=== PATIENT | female | born 1955 | race Caucasian/White ===

== ENCOUNTER 2018-06-28 13:46 | Outpatient (CLI) | payer OTHER | END 2018-06-28 13:47 | disposition home or self-care (01) | LOC: BICMAMMO 13:46 | PROVIDERS: ATTEND Internal Medicine Hematology & Oncology | DX: C50.919 Malignant neoplasm of unspecified site of unspecified female breast (principal); M89.9 Disorder of bone, unspecified; Z80.3 Family history of malignant neoplasm of breast; Z85.3 Personal history of malignant neoplasm of breast | CPT/HCPCS: 77066; 77080; G0279 ==

== ENCOUNTER → 2019-02-22 | Day surgery (SDC) | payer OTHER ==
[2019-02-21 14:43] VITALS: BMI 34.7
[~2019-02-22] MED LIST: Dronedarone HCl 400 MG TAB ONE; Lidocaine 1% PF 5 ML VIAL ONE; PROPOFOL 200 MG/20 ML VIAL ONE
--- NOTE | 2019-02-22 11:26 | DIS ---
DATE OF ADMISSION: 02/22/2019 DATE OF DISCHARGE: 02/22/2019 DATE OF PROCEDURE: 02/22/2019. She will be discharged on the same day. This is an outpatient procedure. She was seen in the outpatient facility to undergo a transesophageal echocardiogram to rule out evidence of intracardiac thrombi, masses, vegetation, also ruled out evidence of left atrial appendage thrombus in anticipation of undergoing an electrocardioversion of atrial fibrillation back to sinus rhythm. ADMISSION DIAGNOSES: Atrial fibrillation, hypertension, depression, hypothyroidism, dyspnea, and varicose veins. DISCHARGE DIAGNOSES: Atrial fibrillation, hypertension, depression, hypothyroidism, dyspnea, and varicose veins. She has been subsequently successfully converted from her atrial fibrillation back to sinus rhythm. PROCEDURE PERFORMED: Procedure in hospital included a transesophageal echocardiogram as well as electrocardioversion of atrial fibrillation. DISCHARGE MEDICATIONS: 1. Eliquis 5 mg b.i.d. 2. Coreg 3.125 mg b.i.d. 3. Anastrozole 1 mg daily. 4. Levothyroxine 125 mcg daily. 5. Vitamin D3. 6. Lexapro, she takes 10 mg a day. 7. Potassium 10 mEq a day. 8. Furosemide 20 mg once a day. She has actually been holding this unless her legs have swollen. 9. Femhrt 1 mg/5 mcg tablets every day. 10. I will also start her on Multaq 400 mg b.i.d. to help maintain her sinus rhythm. FOLLOWUP: She will follow me in 2 to 4 weeks in the office. HOSPITAL COURSE: This is a very pleasant 63-year-old female, who was found to have atrial fibrillation with rapid ventricular response at times. She is advised to undergo a transesophageal echocardiogram and then cardioversion possibly of her atrial fibrillation. She had been seen in the office previously. The diagnosis of atrial fibrillation was at least since December 23. She continued to have atrial fibrillation. She was advised to attempt an electrocardioversion after undergoing a transesophageal echocardiogram to rule out evidence of left atrial appendage thrombus. This was performed today without difficulties or complication. She was not found to have any intracardiac thrombi or masses. Left atrium was dilated to 5-5.2 cm in diameter, which may make it somewhat more difficult to maintain sinus rhythm. If she continues to have episodes of atrial fibrillation that are symptomatic, then she will need to undergo electrophysiological evaluation, possible atrial vein isolation for ablation of the atrial fibrillation. At this time, she did very well after cardioversion. At one attempt to 200 joules, she was successfully converted back to sinus rhythm without difficulties or complications. If she remained stable with blood pressure, heart rate and O2 saturations, she will be discharged home in the next 2 hours. I will see her back in the office in 2 to 4 weeks. Job ID: [id number]
--- NOTE | 2019-02-22 19:15 | OP ---
DATE OF PROCEDURE: 02/22/19 ELECTROCARDIOVERSION INDICATION FOR PROCEDURE: 63-year-old female with atrial fibrillation. She has been on oral anticoagulation. She also has a his tory of hypertension and shortness of breath associated with the rapid heart rate when she has the at rial fibrillation, worsening. She also has a history of depression, thyroid disease, varicose veins. She was advised to undergo a transesophageal echocardiogram after she has been on oral anticoagulatio n for at least two months to determine whether or not she had any left atrial appendage thrombus and if not we would then proceed with electrocardioversion attempt of her atrial fibrillation back to sin us rhythm. After the patient had undergone the transesophageal echocardiogram, then using one attempt at 200 sara les, she was successfully converted back to normal sinus rhythm with a heart rate in the 60s. There w ere no complications or difficulties encountered. This was a successful cardioversion of atrial fibrillation back to sinus rhythm. She will be started on Multaq to hopefully maintain her sinus rhythm.
--- NOTE | 2019-02-22 19:15 | ECHO ---
DATE OF PROCEDURE: 02/22/19 INDICATION: 63-year-old female with atrial fibrillation. She has been on oral anticoagulation. She also has a his tory of hypertension and shortness of breath associated with the rapid heart rate when she has the at rial fibrillation, worsening. She also has a history of depression, thyroid disease, varicose veins. She was advised to undergo a transesophageal echocardiogram after she has been on oral anticoagulatio n for at least two months to determine whether or not she had any left atrial appendage thrombus and if not we would then proceed with electrocardioversion attempt of her atrial fibrillation back to sin us rhythm. She was taken to the [facility] today where she underwent the procedure. She was given short ac ting propofol for the procedure. The transesophageal probe was easily passed down the distal esophagu s. The impressions on the echocardiogram are as follows 1. Normal left ventricular systolic function. 2. Left atrial dilatation of at least 5.2 cm in diameter. 3. Smoke in the left atrium. 4. No evidence of left atrial or left atrial appendage thrombus. There was good flow into the left a trial appendage. 5. Mild tricuspid valve regurgitation. 6. Mild to moderate mitral valve regurgitation. 7. No evidence of aortic valve disease. There is normal valve. No evidence of stenosis or regurgitat ion. The patient tolerated the transesophageal evaluation without any difficulties or complications.
== END ==
LOC: CCL 08:17
PROVIDERS: ATTEND Internal Medicine Cardiovascular Disease
PROC: 5A2204Z Restoration of Cardiac Rhythm, Single (ICD-10-PCS; principal; 2019-02-22)
PROC: B24BZZ4 Ultrasonography of Heart with Aorta, Transesophageal (ICD-10-PCS; principal; 2019-02-22)
DX: I48.0 Paroxysmal atrial fibrillation (principal); I10 Essential (primary) hypertension; F32.9 Major depressive disorder, single episode, unspecified; E03.9 Hypothyroidism, unspecified; I87.2 Venous insufficiency (chronic) (peripheral); I08.1 Rheumatic disorders of both mitral and tricuspid valves; Z79.01 Long term (current) use of anticoagulants; Z79.811 Long term (current) use of aromatase inhibitors; Z79.899 Other long term (current) drug therapy; Z88.2 Allergy status to sulfonamides; Z98.84 Bariatric surgery status
CPT/HCPCS: 92960; 93312; J2001; J2704

== ENCOUNTER 2019-07-14 08:15 | Outpatient (CLI) | payer OTHER ==
--- NOTE | 2019-07-14 09:01 | MMO ---
Bilateral MAMMO Bilat Diag DDI+KAT. CLINICAL HISTORY: Patient is 63 years old and is seen for diagnostic exam. The patient has a history of left Cyst Aspiration in 2002. VIEWS: The views performed were: . FILMS COMPARED: The present examination has been compared to prior imaging studies performed at [facility] on 07/16/2007, 08/08/2008, 10/03/2009 and 06/28/2018. MAMMOGRAM FINDINGS: There are scattered fibroglandular densities. Finding 1: There are stable post operative changes seen in the left breast. Finding 2: There are stable benign appearing calcifications seen in both breasts. There are no suspicious masses, suspicious calcifications, or new areas of architectural distortion. IMPRESSION: THERE IS NO MAMMOGRAPHIC EVIDENCE OF MALIGNANCY. A ROUTINE FOLLOW-UP MAMMOGRAM IN 1 YEAR IS RECOMMENDED. THE RESULTS OF THIS EXAM WERE SENT TO THE PATIENT. ACR BI-RADS Category 2 - Benign finding MAMMOGRAPHY NOTE: 1. A negative mammogram report should not delay a biopsy if a dominant of clinically suspicious mass is present. 2. Approximately 10% to 15% of breast cancers are not detected by mammography. 3. Adenosis and dense breasts may obscure an underlying neoplasm. Reported by: WOLF BENAVIDES MD Electonically Signed: [id number]
--- NOTE | 2019-07-14 15:16 | BD ---
DEXA BONE DENSITOMETRY: (Dual energy X-ray Absorptiometry) DATE: 07/14/2019. HISTORY: A 63-year-old white female for followup, age-related, postmenopausal osteoporosis screening examinati on. Height: 71 inches. Weight: 152 pounds. Age of menopause: 46 years. COMPARISON: 01/21/2016. FINDINGS: The bone mineral density (BMD) is given in grams per square centimeter (g/cm2): LUMBAR SPINE: BMD(g/cm2) T-score Z-score L1: 1.150 1.5 2.8 L2: 1.216 1.7 3.2 L3: 1.217 1.2 2.8 L4: 1.325 2.4 4.0 Total: 1.23 1.6 3.1 Change in BMD compared to previous DEXA: -6.0% HIP: Femoral neck: 0.794 -0.5 0.9 Total: 1.017 0.6 1.6 Change in BMD compared to previous DEXA: -1.6% IMPRESSION: 1) The mean bone mineral density of the lumbar spine is normal. Fracture risk is not increased. 2) The bone mineral density of the femoral neck is normal. Fracture risk is not increased. JN Zora POS: [facility]
== END 2019-07-14 08:16 | disposition home or self-care (01) ==
LOC: BICMAMMO 08:15
PROVIDERS: ATTEND Internal Medicine Hematology & Oncology
DX: C50.112 Malignant neoplasm of central portion of left female breast (principal); T38.6X5A Adverse effect of antigonadotrophins, antiestrogens, antiandrogens, not elsewhere classified, initial encounter
CPT/HCPCS: 77066; 77080; G0279

== ENCOUNTER 2019-08-15 09:45 | Emergency (ER) | payer OTHER ==
[2019-08-15 10:51] LABS: #Basophils 0.1 thou/uL (0.0-0.2); #Eosinphils 0.3 thou/uL (0.0-0.7); #Lymphocytes 1.4 thou/uL (1.20-3.40); #Neutrophils 4.3 thou/uL (1.40-6.50); %Eosinophils 4.5 % (0.0-10.0); %Lymphocytes 19.8 % (21.0-51.0); %Monocytes 13.2 % (0.0-10.0); %Neutrophils 60.5 % (42.0-75.0); Hemoglobin 10.3 g/dL (12.0-16.0); Mean Corpuscular HGB CONC 33.3 g/dL (32.0-36.0); Mean Corpuscular Hemoglobin 28.2 pg (27.0-31.0); Mean Corpuscular Volume 84.7 fL (78.0-98.0); Mean Platelet Volume 8.8 fL (7.4-10.4); Platelet Count 224 thou/uL (130-400); RBC Distribution Width 12.8 % (11.5-14.5); Red Blood Cell (RBC) Count 3.64 mill/uL (4.20-5.40); White Blood Cell (WBC) Count 7.2 thou/uL (4.8-10.8)
[2019-08-15 10:56] LABS: INR-International Normal Ratio 1.8; Prothrombin Time 20.9 SEC (12.0-14.7)
[2019-08-15 10:57] LABS: PTT 42.2 SEC (22.9-36.1)
[2019-08-15 11:03] LABS: ALT (SGPT) 14 U/L (8-55); AST (SGOT) 14 U/L (5-34); Albumin 3.6 g/dL (3.4-4.8); Alkaline Phosphatase 76 U/L (40-150); Anion Gap 14 mmol/L (10-20); BUN (Urea Nitrogen) 31 mg/dL (9.8-20.1); Bilirubin, Total 0.6 mg/dL (0.2-1.2); Calc. Creatinine Clearance 0 mL/min (70-130); Calcium 8.4 mg/dL (7.8-10.44); Carbon Dioxide 24 mmol/L (23-31); Chloride 107 mmol/L (98-107); Estimated GFR-MDRD 73; Globulin 2.9 g/dL (2.4-3.5); Glucose 86 mg/dL (80-115); Potassium 3.6 mmol/L (3.5-5.1); Protein, Total 6.5 g/dL (6.0-8.3); Sodium 141 mmol/L (136-145)
--- NOTE | 2019-08-15 11:09 | RAD ---
EXAM: 4 views of the right knee HISTORY: Knee pain after injury COMPARISON: None FINDINGS: No knee effusion is seen. There is no evidence of acute fracture or dislocation. Mild to mo derate tricompartmental degenerative changes are seen. No soft tissue swelling is present. IMPRESSION: No evidence of acute osseous abnormality.
--- NOTE | 2019-08-15 11:23 | ULT ---
EXAM: Right lower extremity venous ultrasound HISTORY: Right lower extremity pain and edema after injury COMPARISON: None TECHNIQUE: Multiplanar grayscale and color Doppler images were obtained in a right lower extremity ve nous ultrasound. Spectral analysis of the Doppler waveforms were performed. FINDINGS: The common femoral vein, profunda femoral vein, superficial femoral vein, and popliteal vei n are normal in appearance without visible thrombus. These vessels demonstrate normal compression, flow, and augmentation. The posterior tibial vein and greater saphenous vein are patent without evidence of thrombus. IMPRESSION: No evidence of DVT.
[2019-08-15] MEDS ORDERED: Cephalexin 250 MG CAP ONE (11:54)
== END 2019-08-15 11:59 | disposition home or self-care (01) ==
LOC: SCSER 09:45
DX: S80.11XA Contusion of right lower leg, initial encounter (principal); D64.9 Anemia, unspecified; I48.91 Unspecified atrial fibrillation; E03.9 Hypothyroidism, unspecified; I10 Essential (primary) hypertension; F32.9 Major depressive disorder, single episode, unspecified; Z79.899 Other long term (current) drug therapy; W01.0XXA Fall on same level from slipping, tripping and stumbling without subsequent striking against object, initial encounter
CPT/HCPCS: 80053; 85025; 85610; 85730

== ENCOUNTER 2020-08-10 07:40 | Outpatient (CLI) | payer OTHER ==
--- NOTE | 2020-08-10 09:10 | MRI ---
EXAM: MRI of the breasts without and with contrast HISTORY: Left breast cancer COMPARISON: Mammogram and ultrasound 07/16/2020 TECHNIQUE: Multiplanar multisequence MR images were obtained of the breasts without and with IV contr ast. 3-D MIP reformats and contrast enhancement curves were generated on a [employer] workstation. FINDINGS: Scattered fibroglandular breast tissue is seen. Minimal background parenchymal enhancement is seen. There is enhancing spiculated mass measuring 1.3 cm in size at the 12:00 position of the left breast. There is edema in the left breast and thickening of the skin of the left breast and the left breast is larger than the right. No axillary adenopathy is seen. There is a minimally enlarged right axillary lymph node which still d emonstrates a fatty hilum and is likely normal. No internal mammary lymph nodes are identified. The visualized liver is unremarkable. The visualized bones are unremarkable. IMPRESSION: Isolated left breast mass without evidence of multicentric or contralateral disease. There is edema o f the skin of the left breast and enlargement of the left breast compared to the right. BI-RADS Category 6-known malignancy. Appropriate action should be taken.
== END 2020-08-10 07:41 | disposition home or self-care (01) ==
LOC: BICMRI 07:40
PROVIDERS: ATTEND Internal Medicine Hematology & Oncology
DX: C50.912 Malignant neoplasm of unspecified site of left female breast (principal); N63.22 Unspecified lump in the left breast, upper inner quadrant; R60.0 Localized edema
CPT/HCPCS: 82565; A9577; C8908

== ENCOUNTER 2020-08-22 15:53 | Outpatient (CLI) | payer OTHER ==
--- NOTE | 2020-08-22 19:33 | ULT ---
{\rtf1\zicifekr5923\ansi\qnirosb9070\uc1\adeff5\deff0\\stshfloch0\stshfhich0\stshfbi0\defla hd0788\vpjatdwlx7597\jhmznmwgb3774\themelangfe0\themelangcs0{\fonttbl{\f0\fbidi \froman\fcharset0\fpr q2{\*\panose [id number]}[employer]{\*\falt Device Font 10cpi};}{\f1\fbidi \fswiss\fcha rset0\fprq2{\*\panose [id number]}[place];}{\f5\fbidi \fmodern\fcharset0\fprq1{\*\panose 57653 [id number]}Publishing Editor{\*\falt Publishing Editor New};}{\f34\fbidi \froman\fcharset0\fprq2{\*\panose [id number]}[employer]ige Math;}{\f37\fbidi \fswiss\fcharset0\fprq2{\*\panose [id number]}[employer]; }{\flomajor\d48890\fbidi \froman\fcharset0\fprq2{\*\panose 30691975492589137351}[employer]{\*\fa lt Device Font 10cpi};}{\fdbmajor\o13799\fbidi \froman\fcharset0\fprq2{\*\panose [id number] }[employer]{\*\falt Device Font 10cpi};}{\fhimajor\c54659\fbidi \fswiss\fcharset0\fprq2{\*\alisha e [id number]}[employer] Light;}{\fbimajor\t33791\fbidi \froman\fcharset0\fprq2{\*\panose 63797 046280882175824}[employer]{\*\falt Device Font 10cpi};}{\flominor\l81037\fbidi \froman\fcharset0 \fprq2{\*\panose 32201871760198451765}[employer]{\*\falt Device Font 10cpi};}{\fdbminor\j69731\f bidi \froman\fcharset0\fprq2{\*\panose 21236973492198817470}[employer]{\*\falt Device Font 10cpi };}{\fhiminor\m50098\fbidi \fswiss\fcharset0\fprq2{\*\panose [id number]}[employer];}{\fbiminor \h01257\fbidi \froman\fcharset0\fprq2{\*\panose 45651609613029962309}[employer]{\*\falt Device F ont 10cpi};}{\f235\fbidi \froman\fgxcybub008\fprq2 [employer] CE{\*\falt Device Font 10cpi};}{\f 236\fbidi \froman\xgqnsuza088\fprq2 [employer] Berenice{\*\falt Device Font 10cpi};}{\f238\fbidi \fro man\dwohdxxs684\fprq2 [employer] Guinean{\*\falt Device Font 10cpi};}{\f239\fbidi \froman\fcharset 162\fprq2 [employer] Tur{\*\falt Device Font 10cpi};}{\f240\fbidi \froman\pevurwsx341\fprq2 Time s [employer] Buddy (Lithuanian){\*\falt Device Font 10cpi};}{\f241\fbidi \froman\acqgguls059\fprq2 Times [employer] Rom an (Japanese){\*\falt Device Font 10cpi};}{\f242\fbidi \froman\xtpaonkk517\fprq2 [employer] [place] {\*\falt Device Font 10cpi};}{\f243\fbidi \froman\fyqgkysj614\fprq2 [employer] ([place]){\*\f alt Device Font 10cpi};}{\f245\fbidi \fswiss\fwxteqhw732\fprq2 [place] CE;}{\f246\fbidi \fswiss\fcharse t204\fprq2 [place] Berenice;}{\f248\fbidi \fswiss\ckwlkfyn481\fprq2 [place] Guinean;}{\f249\fbidi \fswiss\fchars et162\fprq2 [place] Tur;}{\f250\fbidi \fswiss\kfbuqiwe082\fprq2 [place] ([place]uanian);}{\f251\fbidi \fswiss\fc wzttge772\fprq2 [place] ([place]);}{\f252\fbidi \fswiss\svojwxtu623\fprq2 [place];}{\f253\fbidi \fs wiss\\fprq2 [place] ([place]);}{\f575\fbidi \froman\rbouujoa404\fprq2 [employer] CE;}{\f 576\fbidi \froman\ascjdcos449\fprq2 [employer] [employer] Berenice;}{\f578\fbidi \froman\fliqdsll090\fprq2 [place] [employer] Guinean;}{\f579\fbidi \froman\xqoltmgb458\fprq2 [employer] [employer] Tur;}{\f582\fbidi \froman\gxtouwqe718 \fprq2 [employer] [place];}{\f583\fbidi \froman\cxfqczuh707\fprq2 [employer] ([place]);}{\f605\f bidi fswiss\egldzapp367\fprq2 [employer] CE;}{\f606\fbidi \fswiss\rjtyclyk970\fprq2 [employer] Berenice;}{\f608\f bidi \fswiss\\fprq2 [employer] Guinean;}{\f609\fbidi \fswiss\gtdqepie370\fprq2 [employer] Tur;}{\f 612fbidi \fswiss\juvcntbu937\fprq2 [employer] [place];}{\f613\fbidi \fswiss\irtyixil529\fprq2 [employer] (Vi etnamese);}{\flomajor\j41790\fbidi \froman\tjgwtloy720\fprq2 [employer] CE{\*\falt Device Font 1 0cpi};}{\flomajor\a71889\fbidi \froman\nnktfjyh891\fprq2 [employer] Hartsel{\*\falt Device Font 10cp i};}{\flomajor\j64924\fbidi \froman\\fprq2 [employer] Guinean{\*\falt Device Font 10cpi };}{\flomajor\h83744\fbidi \froman\\fprq2 [employer] Tur{\*\falt Device Font 10cpi};} {\flomajor\s70307\fbidi \froman\yvsihdmy917\fprq2 [employer] (Lithuanian){\*\falt Device Font 10cpi} ;}{\flomajor\m72653\fbidi \froman\zasegtcd142\fprq2 [employer] (Japanese){\*\falt Device Font 10cp i};}{\flomajor\h98975\fbidi \froman\vnygzgal882\fprq2 [employer] [place]{\*\falt Device Font 10cp i};}{\flomajor\o64538\fbidi \froman\\fprq2 [employer] ([place]){\*\falt Device Glory t 10cpi};}{\fdbmajor\g61917\fbidi \froman\rrxfjonm347\fprq2 [employer] CE{\*\falt Device Font 10 cpi};}{\fdbmajor\i17750\fbidi \froman\bbpznral178\fprq2 [employer] Berenice{\*\falt Device Font 10cpi };}{\fdbmajor\y47968\fbidi \froman\fixjtrng482\fprq2 [employer] Guinean{\*\falt Device Font 10cpi} ;}{\fdbmajor\p91160\fbidi \froman\npjiidnt088\fprq2 [employer] Tur{\*\falt Device Font 10cpi};}{ \fdbmajor\t75493\fbidi \froman\kzukzety705\fprq2 [employer] ([place]uanian){\*\falt Device Font 10cpi}; }{\fdbmajor\u02338\fbidi \froman\hodrqioo888\fprq2 [employer] (Japanese){\*\falt Device Font 10cpi };}{\fdbmajor\c88439\fbidi \froman\nukjrdtw207\fprq2 [employer] [place]{\*\falt Device Font 10cpi };}{\fdbmajor\d13196\fbidi \froman\upnozocj662\fprq2 [employer] ([place]){\*\falt Device Font 10cpi};}{\fhimajor\z53180\fbidi \fswiss\jjvejjdo515\fprq2 [employer] Light CE;}{\fhimajor\i83711\fbidi \fswiss\sdwexofu681\fprq2 [employer] Light Berenice;}{fhimajor\z44859\fbidi \fswiss\meqywttc888\fprq2 [employer] Light Guinean;}{\fhimajor\d56553\fbidi \fswiss\juqaguvt195\fprq2 [employer] Light Tur;}{\fhimajor\y18899\f bidi \fswiss\wzqdgvex726\fprq2 [employer] Light [place];}{\fhimajor\u26665\fbidi \fswiss\ytlnmdlr931\fprq 2 [employer] Light ([place]);}{\fbimajor\i78664\fbidi \froman\ambxsfku802\fprq2 [employer] CE{\* \falt Device Font 10cpi};}{\fbimajor\w21674\fbidi froman\iqmogzga958\fprq2 [employer] Berenice{\*\fal t Device Font 10cpi};}{\fbimajor\l50412\fbidi \froman\vlpbfayj730\fprq2 [employer] Guinean{\*\falt Device Font 10cpi};}{\fbimajor\m43931\fbidi \froman\ahqhjdbu292\fprq2 [employer] Tur{\*\falt De vice Font 10cpi};}{\fbimajor\j37128\fbidi \froman\ppvyelfe698\fprq2 [employer] ([place]ian){\*\falt Device Font 10cpi};}{\fbimajor\z37439\fbidi \froman\hpcqeusc471\fprq2 Times New Bdudy (Japanese){\*\fal t Device Font 10cpi};}{\fbimajor\a64051\fbidi \froman\xkiqrkjk449\fprq2 [employer] [place]{\*\fal t Device Font 10cpi};}{\fbimajor\u40332\fbidi \froman\zhokghbz364\fprq2 [employer] ([place]){ \*\falt Device Font 10cpi};}{\flominor\n94497\fbidi \froman\oysdtljv333\fprq2 [employer] CE{\*\f alt Device Font 10cpi};}{\flominor\q33607\fbidi \froman\mczwolah812\fprq2 [employer] [place]sel{\*\falt Device Font 10cpi};}{\flominor\z01514\fbidi \froman\ygxknaua389\fprq2 [employer] Guinean{\*\falt Device Font 10cpi};}{\flominor\q97398\fbidi \froman\aqaknjhu186\fprq2 [employer] Tur{\*\falt Dev ice Font 10cpi};}{\flominor\l95753\fbidi \froman\vgmbswpi341\fprq2 [employer] ([place]ian){\*\falt D evice Font 10cpi};}{\flominor\r08362\fbidi \froman\knygxtww478\fprq2 [employer] (Japanese){\*\falt Device Font 10cpi};}{\flominor\i50234\fbidi \froman\\fprq2 [employer] [place]{\*\falt Device Font 10cpi};}{\flominor\l95903\fbidi \froman\jusgzygq153\fprq2 [employer] ([place]){\* \falt Device Font 10cpi};}{\fdbminor\s59167\fbidi \froman\nzuhtxxd481\fprq2 [employer] CE{\*\fal t Device Font 10cpi};}{\fdbminor\e32949\fbidi \froman\jmgurtde267\fprq2 [employer] Hartsel{\*\falt D evice Font 10cpi};}{\fdbminor\p40423\fbidi \froman\jshpexrk612\fprq2 [employer] Guinean{\*\falt De vice Font 10cpi};}{\fdbminor\y58499\fbidi \froman\rtktkrox322\fprq2 [employer] Tur{\*\falt Devic e Font 10cpi};}{\fdbminor\a34415\fbidi \froman\hmdujwwq451\fprq2 [employer] ([place]ian){\*\falt Dev ice Font 10cpi};}{\fdbminor\r22273\fbidi \froman\acklqzgb299\fprq2 [employer] (Japanese){\*\falt D evice Font 10cpi};}{\fdbminor\y65823\fbidi \froman\evhgrcbs781\fprq2 [employer] [place]{\*\falt D evice Font 10cpi};}{\fdbminor\a76896\fbidi \froman\lcfazweo154\fprq2 [employer] ([place]){\*\f alt Device Font 10cpi};}{\fhiminor\w99094\fbidi \fswiss\\fprq2 [employer] CE;}{\fhiminor\f315 69\fbidi \fswiss\\fprq2 [employer] Berenice;}{\fhiminor\m61398\fbidi \fswiss\mngjbjde117\fprq2 Mike ibri Guinean;}{\fhiminor\g87478\fbidi \fswiss\ellvrixx446\fprq2 [employer] Tur;}{\fhiminor\j57533\fbidi \f iranian\\fprq2 [employer] [place];}{\fhiminor\o91815\fbidi \fswiss\kyzpoqxz506\fprq2 [employer] (Vi etnamese);}{\fbiminor\b77683\fbidi \froman\\fprq2 [employer] CE{\*\falt Device Font 1 0cpi};}{\fbiminor\j92056\fbidi \froman\ukjzonbn807\fprq2 [employer] Berenice{\*\falt Device Font 10cp i};}{\fbiminor\k75982\fbidi \froman\ekhfinuh330\fprq2 [employer] Guinean{\*\falt Device Font 10cpi };}{\fbiminor\h45022\fbidi \froman\ckmqeyyt634\fprq2 [employer] Tur{\*\falt Device Font 10cpi};} {\fbiminor\d86128\fbidi \froman\bbrinmfw110\fprq2 [employer] ([place]ian){\*\falt Device Font 10cpi} ;}{\fbiminor\j60460\fbidi \froman\zabbbmjt578\fprq2 [employer] (Japanese){\*\falt Device Font 10cp i};}{\fbiminor\u55313\fbidi \froman\otumycqy514\fprq2 [employer] [place]{\*\falt Device Font 10cp i};}{\fbiminor\s44404\fbidi \froman\ypexutwz388\fprq2 [employer] ([place]){\*\falt Device Glory t 10cpi};}}{\colortbl;\red0\green0\blue0;\red0\green0\xmhf893;\red0\odqhy456\nvop771;\red0\urvfo536\b lue0;\zat709\green0\blqs993;\whc403\green0\blue0;\ofh233\fqgko349\blue0;\xpk562\manff478\esqt188;\red 0\green0\ujwe624;\red0\xcuft487\ytpm530;\red0\\blue0;\vyc344\green0\oxoq505;\dzj567\green0\bl ue0;\vrs767\\blue0;\wvp952\\nrmm236;\tjw444\rcnop723\xepb973;\red91\vuzjc677\dvxo862; }{*\defchp \fs22 }{\*\defpap \ql \li0\ri0\sa160\sl259\slmult1\widctlpar\wrapdefault\aspalpha\aspnum\f aauto\adjustright\rin0\lin0\itap0 }\noqfpromote {\stylesheet{\ql \li0\ri0\widctlpar\wrapdefault\faaut o\adjustright\rin0\lin0\itap0 \rtlch\fcs1 \af5\afs20\xizkt5092 \ltrch\fcs0 \f5\fs20\oywh0545\itytvq43 33\cgrid\asnjxo1230\tzdrjltg0209 \snext0 \sqformat \spriority0 Normal;}{\s1\qc \li-432\ri0\sl-222\slm ult0\keepn\widctlpar\jh2388\wrapdefault\faauto\outlinelevel0\adjustright\rin0\linda-432\itap0 \rtlch\fc s1 \ab\af5\afs20\vhtau1628 \ltrch\fcs0 \b\f5\fs20\ucvq9293\mezfbw6736\cgrid\wrshwp3728\dkeedjkf0137 \s basedon0 \snext0 \slink15 \sqformat heading 1;}{\*\cs10 \additive Default Paragraph Font;}{\*\ts11\ts rowd\trftsWidthB3\depagpa076\vwzuyeg048\trpaddfl3\trpaddft3\trpaddfb3\trpaddfr3\trcbpat1\trcfpat1\tbl ind0\tblindtype3\tsvertalt\tsbrdrt\tsbrdrl\tsbrdrb\tsbrdrr\tsbrdrdgl\tsbrdrdgr\tsbrdrh\tsbrdrv \ql \l i0\ri0\sa160\sl259\slmult1\widctlpar\wrapdefault\aspalpha\aspnum\faauto\adjustright\rin0\lin0\itap0 \r tlch\fcs1 \af0\afs22\nweff2640 \ltrch\fcs0 \fs22\mylq1700\xgpfqy0712\cgrid\lcamuu3582\jznqwsps8849 \s next11 \ssemihidden \sunhideused Normal Table;}{\*\cs15 \additive \rtlch\fcs1 \ab\af0\afs32 \ltrch\fc s0 \b\fs32\feriesa07\loch\t81982\hich\xk20291\dbch\hk90641 \zdhqaoqx71 \slink1 \slocked \spriority9 H eading 1 Mendy;}{\s16\qc \li0\ri0\widctlpar\wrapdefault\faauto\adjustright\rin0\lin0\itap0 \rtlch\fcs1 \af1\afs28\pxyrm6949 \ltrch\fcs0 \f1\fs28\bziy7288\ygmjvm8690\cgrid\mcdupv6635\jshtwstx1423 \sbasedo n0 \snext16 \slink17 \sqformat Title;}{\*\cs17 \additive \rtlch\fcs1 \ab\af0\afs32 \ltrch\fcs0 \b\fs3 2\zoowfeh65\loch\d98105\hich\pd59522\dbch\ed10500 \ \slink16 \slocked \imdnokiqc93 Title Ch ar;}{\s18\ql \li0\ri0\widctlpar\tqc\iq0446\tqr\ji6801\wrapdefault\faauto\adjustright\rin0\lin0\itap0 \rtlch\fcs1 \af5\afs20\vdxze8877 \ltrch\fcs0 \f5\fs20\sqip8996\xrtmga5647\cgrid\frjjft9671\ 33 \sbasedon0 \snext18 \slink19 header;}{\*\cs19 \additive \rtlch\fcs1 \af5\afs20 \ltrch\fcs0 \f5\fs2 0 \aisnwxbr96 \slink18 \slocked \ssemihidden Header Mendy;}{\s20\ql \li0\ri0\widctlpar\tqc\sh1770\tqr\t x8640\wrapdefault\faauto\adjustright\rin0\lin0\itap0 \rtlch\fcs1 \af5\afs20\hzzvk1952 \ltrch\fcs0 \f5 \fs20\ndro3344\ieavra8618\cgrid\kpvdjv9277\cifqedyp8527 \sbasedon0 \snext20 \slink21 footer;}{\*\cs21 \additive \rtlch\fcs1 \af5\afs20 \ltrch\fcs0 \f5\fs20 \woljmhhe22 \slink20 \slocked Footer Mendy;}{\* \cs22 \additive \rtlch\fcs1 \af0 \ltrch\fcs0 \kqkmccfy19 page number;}{\s23\ql \li0\ri0\sa160\sl259\s lmult1\widctlpar\wrapdefault\aspalpha\aspnum\faauto\adjustright\rin0\lin0\itap0 \rtlch\fcs1 \af0\afs2 2\twvtm1341 \ltrch\fcs0 \f37\fs22\byyh2483lsjhsd4212\cgrid\ixbgbk4772\pfvvuyba4098 \snext23 \spriorit y0 \nuatuzf6893927 *BORRERO CATH;}}{\*\listtable{\list\[id number]\listhybrid{\listlevel\l evelnfc0\levelnfcn0\leveljc0\leveljcn0\levelfollow0\levelstartat1\levelspace0\levelindent0{\leveltext \mkjntbtelbygbex48524565\'02\'00.;}{\levelnumbers\'01;}\rtlch\fcs1 \af0 \ltrch\fcs0 \fbias0 \fi-360\l i720\tvg999 }{\listlevel\levelnfc4\levelnfcn4\leveljc0\leveljcn0\levelfollow0\levelstartat1\lvltentat subha\levelspace0\levelindent0{\leveltext\qlmyuifvpouqlqz57172405\'02\'01.;}{\levelnumbers\'01;}\rtlch\f cs1 \af0 \ltrch\fcs0 \fi-360\dq9773iya0235 }{\listlevel\levelnfc2\levelnfcn2\leveljc2\leveljcn2\level follow0\levelstartat1\lvltentative\levelspace0\levelindent0{\leveltext\uinhvobburpelio64063996\'02\'0 2.;}{\levelnumbers\'01;}\rtlch\fcs1 \af0 \ltrch\fcs0 \fi-180\uh7955\ask9020 }{\listlevel\levelnfc0\le velnfcn0\leveljc0\leveljcn0\levelfollow0\levelstartat1\lvltentative\levelspace0\levelindent0{\levelte xt\tstuewtdqhvnond81722379\'02\'03.;}{\levelnumbers\';}\rtlch\fcs1 \af0 \ltrch\fcs0 \fi-360\fz4541\l tl2024 }{\listlevel\levelnfc4\levelnfcn4\leveljc0\leveljcn0\levelfollow0\levelstartat1\lvltentative\l evelspace0\levelindent0{\leveltext\vnmviwvkkzcgmju06203548\'\04.;}{\levelnumbers\';}\rtlch\fcs1 \af0 \ltrch\fcs0 \fi-360\eh8108\rli7510 }{\listlevel\levelnfc2\levelnfcn2\leveljc2\leveljcn2\levelfol low0\levelstartat1\lvltentative\levelspace0\levelindent0{\leveltext\gvchdecoawgtodm14810256\'\'05.; }{\levelnumbers\;}\rtlch\fcs1 \af0 \ltrch\fcs0 \fi-180\ht7178\hgf9009 }{\listlevel\levelnfc0\level nfcn0\leveljc0\leveljcn0\levelfollow0\levelstartat1\lvltentative\levelspace0\levelindent0{\leveltext\l aeqckdyhntkurz23310775\'02\'06.;}{\levelnumbers\';}\rtlch\fcs1 \af0 \ltrch\fcs0 \fi-360\pn5720\lin5 040 }{\listlevellevelnfc4\levelnfcn4\leveljc0\leveljcn0\levelfollow0\levelstartat1\lvltentative\level space0\levelindent0{\leveltext\lnhnegxgxxcqbrk92921015\'\.;}{\levelnumbers\;}\rtlch\fcs1 \af0 \ltrch\fcs0 fi-360\sj4116\oaw4335 }{\listlevel\levelnfc2\levelnfcn2\leveljc2\leveljcn2\levelfollow0\l evelstartat1\lvltentative\levelspace0\levelindent0{\leveltext\sqjlzgoubgpvmjh16053944\'.;}{\lev elnumbers\;}\rtlch\fcs1 \af0 \ltrch\fcs0 \fi-180\io4245\wyw4703 }{\listname ;}\[id number]}{\l ist\listtemplateid-[id number]\listhybrid{\listlevel\levelnfc0\levelnfcn0\leveljc0\leveljcn0\levelfoll ow0\levelstartat1\levelspace0\levelindent0{\leveltext\tfidixfpxvqhkxo49954502\'\'.;}{\levelnumber s\;}\rtlch\fcs1 \af0 \ltrch\fcs0 \fbias0 \fi-360\li720\krw155 }{\listlevel\levelnfc4\levelnfcn4\le veljc0\leveljcn0\levelfollow0\levelstartat1\lvltentative\levelspace0\levelindent0{\leveltext\leveltem nqvupxj31967375\'\.;}{\levelnumbers\;}\rtlch\fcs1 \af0 \ltrch\fcs0 \fi-360\om1072\bbb1488 }{\l istlevel\levelnfc2\levelnfcn2\leveljc2\leveljcn2\levelfollow0\levelstartat1\lvltentative\levelspace0\l evelindent0{\leveltext\ogkywbhsfgzccff47648300\'\'02.;}{\levelnumbers\'01;}\rtlch\fcs1 \af0 \ltrch\f cs0 \fi-180\fi7097\uud9740 }{\listlevel\levelnfc0\levelnfcn0\leveljc0\leveljcn0\levelfollow0\levelsta rtat1\lvltentative\levelspace0\levelindent0{\leveltext\erwokuqdesnwldq37974571\'\03.;}{\levelnumbe rs\';}\rtlch\fcs1 \af0 \ltrch\fcs0 \fi-360\fv8411\mzb4624 }{\listlevel\levelnfc4\levelnfcn4\leveljc 0\leveljcn0\levelfollow0\levelstartat1\lvltentative\levelspace0\levelindent0{\leveltext\leveltemplate cx31197678\'\'04.;}{\levelnumbers\';}\rtlch\fcs1 \af0 \ltrch\fcs0 \fi-360\up2681\ioj0728 }{\listl evel\levelnfc2\levelnfcn2\leveljc2\leveljcn2\levelfollow0\levelstartat1\lvltentative\levelspace0\leve lindent0{\leveltext\qcljctyyfpdhjne15701690\'02\'05.;}{\levelnumbers\';}\rtlch\fcs1 \af0 \ltrch\fcs 0 \fi-180\bu3465\hpi0407 }{\listlevel\levelnfc0\levelnfcn0\leveljc0\leveljcn0\levelfollow0\levelstart at1\lvltentative\levelspace0\levelindent0{\leveltext\tkelxrcbzuvztnd14576860\'02\'06.;}{\levelnumbers \';}\rtlch\fcs1 \af0 \ltrch\fcs0 \fi-360\rl3958\gkp2511 }{\listlevel\levelnfc4\levelnfcn4\leveljc0\l eveljcn0\levelfollow0\levelstartat1\lvltentative\levelspace0\levelindent0{\leveltext\leveltemplateid6 5537007\'.;}{\levelnumbers\;}\rtlch\fcs1 \af0 \ltrch\fcs0 \fi-360\hh5278\oca5762 }{\listleve l\levelnfc2\levelnfcn2\leveljc2\leveljcn2\levelfollow0\levelstartat1\lvltentative\levelspace0\levelin dent0{\leveltext\lnibkydtptgqzed24963615\.;}{\levelnumbers\;}\rtlch\fcs1 \af0 \ltrch\fcs0 \f i-180\co4448\rxy8888 }{\listname ;}\[id number]}}{\*\listoverridetable{\listoverride\rpufmq78203 07005\listoverridecount0\ls1}{\listoverride\rgoevf9419856175\listoverridecount0\ls2}}{\*\rsidtbl \rsi g600650\ngor472732\eifo3768362\husr1681069\fqvo8285823\puxw4764929\adwx4659640\sfrg1332815\ljkj923703 6\cbnk0426272\zryn8003255\dhvp9346942\mofj1633046\ougv6770525\gfrs4797458\amhn7218026\atwg8386892\rsi n38858267\fzbz12205915\jwel52507764\htxt02423541\dvoa83872474\ppyr09797492\vlaz66419834}{\mmathPr\mma kvInwu46\mbrkBin0\mbrkBinSub0\msmallFrac0\mdispDef1\mlMargin0\mrMargin0\mdefJc1\wbvrvSnmcwh7724\mintL im0\mnaryLim1}{\info{\author Rehan Bulen}{\doccomm [id number] US Breast Limited Lt}{\spar machine operator helper Jad link (PACS)}{\creatim\ja4371\mo10\dy1\hr12\min10}{\revtim\zs0166\mo10\dy1\hr12\min10}{\printim\yr199 7\mo10\dy21\hr23\min28}{\version2}{\edmins0}{\nofpages2}{\ghqxgups386}{\kwpmweki4902}{\*\company }{\n mujqktwkr2626}{\dchk88427}}{\*\userprops {\propname LastName}\pitncvrx86{\staticval FRANCOIS}{\propname FirstName}\dmzzrrba80{\staticval MADELINE}{\propname MedicalRecordNumber}\wxfyprxu67{\staticval [id number]}{\propname PatientStatus}\smcdgirg22{\staticval CLI}{\propname AccountNumber}\gzmsnviy23{\staticv al [id number]}{\propname Wing}\viuwzehg58{\staticval BICULT}{\propname Room}\{\staticval }{\propname DictatingDoctorName}\qjeucxmx19{\staticval YARA SANCHEZ M.D.}{\propname AdmissionDate}\pro ptype30{\staticval 08/22/20}{\propname DischargeDate}\wbxevcwr08{\staticval }{\propname Signature}\p evemgxs67{\staticval Roland HAILED.}{\propname TranscribedBy}\ufarqgjj34{\staticval [facility]}{\propnam e DictationDate}\lapfabug56{\staticval 08/22/20}{\propname DictationTime}\{\staticval 1630} {\propname TranscriptionDate}\nswkwwce92{\staticval 08/22/20}{\propname TranscriptionTime}\tdvkugvp82 {\staticval 1921}{\propname Copies}\yvffjczf98{\staticval }{\propname Template}\fyixataw07{\staticva l RAD}{\propname Bed}\rtvdgsso67{\staticval }{\propname AccountStatus}\zlraolgd74{\staticval REG}{\p ropname JobNumber}\lmnhcykj15{\staticval [id number]}{\propname DocumentID}\proptype3{\staticval [id number]} {\propname Sex}\ciefobya40{\staticval F}{\propname }\dmdetpjf58{\staticval 1955}{\propname S SN}\{\staticval }{\propname ReportStatusID}\proptype3{\staticval 0}{\propname AttendingDoc torName}\jhvmukai20{\staticval SHLOMO PEDRAZA JR., M.D.}{\propname AttendingDoctor}\ecypvdiu58{\static kashif MASJO}{\propname DictatingDoctor}\iljhgiuj94{\staticval NAMJE}{\propname ResidentDoctorName}\prop type30{\staticval }{\propname ResidentDoctor}\czjftnez73{\staticval }{\propname DictatingDoctorSign ature}\ceupnhjv03{\staticval YARA SANCHEZ M.D.}{\propname ElectronicSignature}\wismjmnt62{\staticval ES }{\propname SignatureLines}\jxflicch21{\staticval }{\propname Tem plateGroup}\{\staticval Radiology}{\propname Orders}\cvocseyn32{\staticval [id number]~ULT. BRLIML~US Breast Limited Lt~T~08/22/2020~08/22/2020 4:24:00 PM~~ABN MRI~3.6~3\'3b}{\propname ExamDate}\p {\staticval 08/22/20}{\propname Location}\zmqmnwai71{\staticval }{\propname ReasonForStudy} \ugtwqbmd83{\staticval ABN MRI}{\propname Age}\pqxpuscn31{\staticval 64}{\propname PatientName}\propt ype30{\staticval FRANCOIS, MADELINE}{\propname SexName}\wbqbogbt84{\staticval Female}{\propname AttendingD octorSignature}\iprpaftm42{\staticval SHLOMO PEDRAZA JR., M.D.}{\propname AttendingDoctorPhone}\propty pe30{\staticval }{\propname AttendingDoctorFax}\dtwakvla17{\staticval }{\pr opname History}\iaelqmvd59{\staticval }{\propname ExamDateTime}\{\staticval 08/22/20 12:00 AM}{\propname ExamDescription}\rhdywbal72{\staticval US Breast Limited Lt}{\propname ExamID}\proptype 30{\staticval [id number]}{\propname PatientSignature}\bimcrpyr09{\staticval MADELINE FRANCOIS}{\propname D ateSigned}\ngpwxlyq47{\staticval 08/23/20 10:46 AM}{\propname FacilityName}\xjyzbuck02{\staticval [facility]}{\propname FacilityName2}\agmakvlf17{\staticval [facility]}{propname FacilityAddr ess}\{\staticval [address]}{\propname FacilityCity}\bjcbcebw39{\staticval [place] }{\propname FacilityState}\sxrhulux78{\staticval [place]}{\propname FacilityZip}\ilatjmnz61{\staticval [phone]}{\propname eSigned}\{\staticval < eSigned 08/23/2020 10:46 >}}{\*\xmlnstbl {\xml ns1 [email or web address]/word/2002/wordml}}\zoyxab87394\deikyn83842\ncgqt6653\sastv941 6\tcxvh5299\oadov8632\gutter0\ltrsect \widowctrl\ftnbj\aenddoc\trackmoves0\trackformatting1\donotembe dsysfont0\relyonvml0\donotembedlingdata1\grfdocevents0\validatexml0\showplaceholdtext0\ignoremixedcon tent0\saveinvalidxml0\showxmlerrors0\noxlattoyen\expshrtn\noultrlspc\dntblnsbdb\nospaceforul\hyphcaps 0\formprot\formshade\horzdoc\tjoembls718\xmsowcgd975\qbjrrvbmn8601\clbwjowwn0092\dghshow0\dgvshow3\cecile ompress\viewkind1\shxtmwovx450\viewzk2\pgbrdrhead\pgbrdrfoot\nolnhtadjtbl\xjocvtef68488965 \fet0{\*\w grffmtfilter 013f}\ilfomacatclnup0\enforceprot1\protlevel2{\*\template C:\\Program Files\\WinScript\\W inScript.dot}{\*\docvar {Copies}{ }}{\*\ftnsep \ltrpar \pard\plain \ltrpar\ql \li0\ri0\widctlpar\wrap default\faauto\adjustright\rin0\lin0\itap0 \rtlch\fcs1 \af5\afs20\gnwfs5941 \ltrch\fcs0 \f5\fs20\lang 1033\ahtrxq9159\cgrid\ezqhyh9164\xfmibhcv0890 {\rtlch\fcs1 \af5 \ltrch\fcs0 \jsdntvj159330 \chftnsep }}{\*\ftnsepc \ltrpar \pard\plain \ltrpar\ql \li0\ri0\widctlpar\wrapdefault\faauto\adjustright\rin0\l in0\itap0 \rtlch\fcs1 \af5\afs20\bqccn9136 \ltrch\fcs0 \f5\fs20\gysa7213\zfppfz6854\cgrid\aqowjc3383\l dssoyph2551 {\rtlch\fcs1 \af5 \ltrch\fcs0 \dyapmnr321602 \chftnsepc }}{\*\aftnsep \ltrpar \pard\plain \ltrpar\ql \li0\ri0\widctlpar\wrapdefault\faauto\adjustright\rin0\l in0\itap0 \rtlch\fcs1 \es6dbe96\dnddj9470 \ltrch\fcs0 \f5\fs20\fvvw9512\lywwwz9298\cgrid\awnajq3080\l yloisub6051 {\rtlch\fcs1 \af5 \ltrch\fcs0 \athrldq940994 \chftnsep }}{\*\aftnsepc \ltrpar \pard\plain \ltrpar\ql \li0\ri0\widctlpar\wrapdefault\faauto\adjustright\rin0\l in0\itap0 \rtlch\fcs1 \af5\afs20\huuvt4067 \ltrch\fcs0 \f5\fs20\ooiu9090\nqvseu4390\cgrid\zlqxgt1150\l jleydpq4155 {\rtlch\fcs1 \af5 \ltrch\fcs0 \uixpmim751337 \chftnsepc }}\ltrpar \pard\plain \ltrpar\s18\ql \li0\ri0\sl-222\slmult0\nowidctlpar\tqc\vi5221\tqr\oj3441\wrapde fault\faauto\adjustright\rin0\lin0\itap0\asexzbeq9200681 \rtlch\fcs1 \af5\afs20\whiss9721 \ltrch\fcs0 \f5\fs20\jvwc5628\gkmmfl1540\cgrid\nbyuqw3419\gzmesplh6853 {\rtlch\fcs1 \af5 \ltrch\fcs0 \jhpyqew708 2012 ULTRASOUND LEFT BREAST LIMITED: 08/22/20 HISTORY: 64-year-old female with history of left lumpectomy for left breast cancer years ago. She recently had an ultrasound guided right breast biopsy for a lesion that was seen on mammogram. However, the post biopsy clip position demonstrated that what was seen on the mammogram did not correspond to the lesio n that was biopsied on ultrasound. The pathology result or that ultrasound guided biopsy showed no ca ncer. Because of that, Dr. Munoz, who originally worked up the right breast and did the right breast biopsy , recommended MRI to evaluate the mammographic lesion in the right breast. The MRI performed 08/10/20 [address] by [address] Rangel, who saw a spiculated lesion in the left breast on the MRI, interpreted that lesion has highly suspicious for breast cancer, and cordell mmended second look left breast ultrasound for ultrasound guided left breast biopsy. Dr. Rangel did n ot know that the patient had lumpectomy in the left breast in the past. In fact, the spiculated enhan cing lesion in the left breast on the MRI of 08/10/20, corresponds exactly to the spiculated post lump ectomy scar that can be seen to be involuting on the serial mammograms over the years. Before all of that was sorted out, an ultrasound of the left breast was performed. FINDINGS: Focused ultrasound of the left breast shows a strongly shadowing spiculated very hypoechoic lesion at the 11 o\rquote clock position, 2 cm from the nipple, which corresponds exactly to the MRI lesion an d the mammographic lesion, representing post lumpectomy scar. This is not cancer. After speaking to Dr. Rangel on the telephone, it was determined that no suspicious lesion is found o n the MRI in the right breast. It is possible that what was originally recommended for biopsy on the right breast seen on the right mammogram, may have been stable over the last few years. Nevertheless, short interval follow-up right mammogram is recommended. IMPRESSION: 1.\tab BIRADS 3: Probably Benign Finding Initial Short-Interval Follow-up Suggested \tab Initial short-term follow up (usually 6-month) examination. }\pard \ltrpar\s18\ql \li0\ri0\sl-222\slmult0\nowidctlpar\wrapdefault\faauto\adjustright\rin0\lin0\it ap0\[id number] {\rtlch\fcs1 \af5 \ltrch\fcs0 \eqddccx3617202 2.\tab Recommend six month follow-u p right mammogram.}{\rtlch\fcs1 \af5 \ltrch\fcs0 \kqro2130\kizdma6079\noproof\fttnene370254 {\shp{\*\s hpinst\shpleft0\shptop0\\rccbkrguw665\\shpbxmargin\shpbxignore\shpbymargin\shpbyig nore\\\\shpz3\ewneam8579{\sp{\sn shapeType}{\sv 3}}{\sp{\sn fFlipH}{\sv 1}}{\s p{\sn fFlipV}{\sv 0}}{\sp{\sn rotation}{\sv 54684673}}{\sp{sn lTxid}{\sv 77603}}{\sp{\sn dyTextTop}{\s v 0}}{\sp{\sn dyTextBottom}{\sv 0}}{\sp{\sn anchorText}{\sv 1}}{\sp{\sn fillColor}{\sv 0240856}}{\sp{ \sn fFilled}{\sv 0}}{\sp{\sn lineColor}{\sv 39715986}}{sp{\sn lineWidth}{\sv 90856}}{\sp{\sn posh}{\s v 2}}{\sp{\sn posrelh}{\sv 5}}{\sp{\sn posv}{\sv 2}}{\sp{\sn posrelv}{\sv 5}}{\sp{\sn metroBlob}{\sv {\*\svb 158d307035142419542347015311n2699667rd989526n3434391081722390v313w9b33541g985q68520378298o2p4 49a7p4758874kj9984236k048jmu3u011013xys734512v534a41t59c96w93926r705h839h700y836v7z68m08l841402ql96lr rt51ucjt8to8498g58t03wvnt59p3ww216r2mu34gh4of5crpv231b145572535761n93n6w28o1q9tnks80n5241r5y717wu7536 p8sqa6152j27x9ty4h7j65103q0ux75934if9y2369kop460w61dfz9c963ec12961i801o7k777j64e9j8d647g7w930at8u2867 3233j3z6z110d25v57ju0i19108wg39n39c083961n01420y0w1dqs0dri848772ns7c03i4o64vu93g7b651a54et81g59h697cp 651232399iq05jt1wf8b4fc1l46a69430g7a49111nb47wy2dg97hd9n73oo0nt34x2a7shd617k5rs48sdf9cwm294ew1b529539 afov7434235u07182546024936279436188888wb07ehb4574730878623535u8418002d26540n250v8i02878f36i529u88wq33 51m53gx53qq58a49o045jw998o54q8sd8x96sm06av4i55p390x9f4100b3gjw14615f1805qht49wic0n4096v4qn53c0w7m4980 8744x7hx3f64467au6199728f3xwk1e15833145ipj7y86v1605u5p8du9v748me71807jes20jnw1031s636e61m59jbipnp8l25 09b791b6l18it27924ek2l068235ya60f5e397xs8lgy0z5yt8y78978s31t850q1x98611145q06u13ibh775t30j7649l9238u3 5917488hst7h0de665yi5x05000257q956aw12w1k13qhf65dauoompea75kc36789oq91im847xq1b22p8pf0598t7leto396or5 59988oxoo4958651t4024452589866063860338478j9f45d1na726969590517699k0808926601595e96139f721r256q425f6t xi749r0pqs6285fa0s74vds9l7156h13647e98401261u74r382lj5810ye7325x38r0r779nk90w9x8mkxcv855hr84yt1v4u581 71p1y934gs3vm4r0389r04h44gr051re506878vrd328a71i1nrn53842a1wnf1gtw82j5887414q756965g7l2f94frp4z8wed26 g4e5094jly0o7469675174o2423t5ff4rvxl299057580on00604r96d5915t451mk67411foj475d7t6c140a85834wx232z9387 lf87k08265dvqd5vt887k91bfud08d4ad354671223889512jl61zlv9x922v61f88184797hm339g6182oe08msr684170x8s505 686z6d956edb6xi44p8ug063ykz690898089qs0h0g372rw948292zn2h475y62320091742453r376729je3157w70bc7t7k0dzm h74op592i83907991o9qzc74773b75qk8ta42004gt22n8ke64lv4z7j29d0k1617224300b2091rsp151604030234885u7xkpaq e23j974768t88j25093198xa124qlh3gp53bk370t9528g13i7wf840042ao0b3703bs625735xj7bjl6z5dm5749c2l301x7sh6p 8ta6e646198kw15cu8p21075388900r1www47w69mg847159274524jw7629109453a2f5rpi52kx0y1zc8i875r66u8882260d56 268a237u9b3a65o9n1oug040di9547i260126qf728nnt04l2c88oz02o757880u702269d9t6p45r9185m2z7i4169r9a0bsip58 23g6692z9291g01129400812587o368v44u00w0c98r24666fj2lyfmhd3hy8448997h207v44wv5167j45rk6vf0g95m056440kj 62602q025g31z198wn755skr38d4i69u0kv7h2a44r995547048kldx566230o63e635ny156f7210k0hxw410i619ddzr098079t f1063xl508t0vm16xg828278508sf1ql7mz73962s687z6g26k2gl3x684w3l2t198v6i4g16ks4090o6c9rn519o2t7r3449529e d6nzq77q359s644822909095i92590256fh1hf9300t48vnyr5p3918f5990u6n4134g6389jh13292k0pb7a99l47px04340cu65 g1r0609l02611496h9005vq93h7wm082z8knk46k9r2r28e21f69484g27o4b432fir62585y0l670e91t04prvw1qve0jmm9v93g yqi94h4809eake9506144k747654428869691377540930rpy37m44a1158706248791725v6784279055511o621y420a6968015 b645k4a8f1z874jb7565192bk86qw039zu258491491fgx44ucf5z1268682pvgt7894gm0u5m11c5t34te067pdbw60ih0wc2a19 39dqs16ay4397c5v5e01e50m0293kb383696c171lp33prk1l7v2615880984666r77a8259v2286689j4q471f49t6d688fl4l68 mc0145010627s025l3867g22xq8w9n248964064j5dlt9r074n5003ef81eo1r3q6gv8419091632bdwm673n0u7px04632yp771r le8976hl37g1j8zh09kml4g99dv6n5v4e1w75d2x97r444g3066r61b79dwv7hm4858mk6n131a415olx872s84fh015u9dw549ih ibj147358029137wxb237hx481179smzv7316714w75169x4533271426875939586460t6290558eb844409d116034546702087 71615241080663271856171459446c090s1j15637u404f30117707959c2j616u0q053e27386u343691930368656905253924j a84lal0538703821045935h495373753439734625099980062y8428947p63485m046t2d57322l29453w91862o920751520228 27468872119q9w25j1pa615966000918868o234930442948352756049545905r6859638328827a87813t913q443v925p5e718 h19229x0317815670937111988737ndp73g78y7920681208424875p79845231325966107614095905567754362442426j484e 377r2627128k003d6r094p55926112353977411646m70155460r2200005525}}}{\sp{\sn dhgt}{\sv 429963413}}{\sp{\s n fLayoutInCell}{\sv 1}}{\sp{\sn fHidden}{\sv 0}}{\sp{\sn sizerelv}{\sv 3}}{\sp{\sn fLayoutInCell}{\s v 1}}{\shptxt \ltrpar \pard\plain \ltrpar\s20\ql \li0\ri0\widctlpar\tqc\sg9848\tqr\yh7559\wrapdefault \faauto\adjustright\rin0\lin0\itap0 \rtlch\fcs1 \af5\afs20\jryit7657 \ltrch\fcs0 \f5\fs20\uyup4064\la jpdv4432\cgrid\rpjrsj2805\objppdhm5254 {\field{\*\fldinst {\rtlch\fcs1 \af5 \ltrch\fcs0 \vdecuzl11511 82 PAGE \\* MERGEFORMAT }}{\fldrslt {\rtlch\fcs1 \af5 \ltrch\fcs0 \cf17\cezv0031\ewwhmf6217\noproof \genlvvg9558607\qqpeutzj6083136 2}}}} POS: OFF
--- NOTE | 2020-08-23 12:18 | ULT ---
ULTRASOUND LEFT BREAST LIMITED: 08/22/20 HISTORY: 64-year-old female with history of left lumpectomy for left breast cancer years ago. She recently had an ultrasound guided right breast biopsy for a lesion that was seen on mammogram. However, the post biopsy clip position demonstrated that what was seen on the mammogram did not correspond to the lesio n that was biopsied on ultrasound. The pathology result or that ultrasound guided biopsy showed no ca ncer. Because of that, Dr. Munoz, who originally worked up the right breast and did the right breast biopsy , recommended MRI to evaluate the mammographic lesion in the right breast. The MRI performed 08/10/20 was subsequently interpreted by Dr. Rangel, who saw a spiculated lesion in the left breast on the MRI, interpreted that lesion has highly suspicious for breast cancer, and cordell mmended second look left breast ultrasound for ultrasound guided left breast biopsy. Dr. Rangel did n ot know that the patient had lumpectomy in the left breast in the past. In fact, the spiculated enhan cing lesion in the left breast on the MRI of 08/10/20, corresponds exactly to the spiculated post lump ectomy scar that can be seen to be involuting on the serial mammograms over the years. Before all of that was sorted out, an ultrasound of the left breast was performed. FINDINGS: Focused ultrasound of the left breast shows a strongly shadowing spiculated very hypoechoic lesion at the 11 o'clock position, 2 cm from the nipple, which corresponds exactly to the MRI lesion and the m ammographic lesion, representing post lumpectomy scar. This is not cancer. After speaking to Dr. Rangel on the telephone, it was determined that no suspicious lesion is found o n the MRI in the right breast. It is possible that what was originally recommended for biopsy on the right breast seen on the right mammogram, may have been stable over the last few years. Nevertheless, short interval follow-up right mammogram is recommended. IMPRESSION: 1. BIRADS 3: Probably Benign Finding Initial Short-Interval Follow-up Suggested Initial short-term follow up (usually 6-month) examination. 2. Recommend six month follow-up right mammogram. POS: [place]
== END 2020-08-22 15:54 | disposition home or self-care (01) ==
LOC: BICULT 15:53
PROVIDERS: ATTEND Surgery
DX: N63.20 Unspecified lump in the left breast, unspecified quadrant (principal)

== ENCOUNTER 2021-09-03 08:30 | Outpatient (CLI) | payer OTHER | END 2021-09-03 08:31 | disposition home or self-care (01) | LOC: BICULT 08:30 | PROVIDERS: ATTEND Internal Medicine Hematology & Oncology | DX: C50.919 Malignant neoplasm of unspecified site of unspecified female breast (principal) | CPT/HCPCS: 77066; G0279 ==

== ENCOUNTER 2023-03-03 05:48 | Day surgery (SDC) | payer BC ==
[2023-03-02 16:13] VITALS: BMI 31.6
[2023-03-03] MEDS ORDERED: PROPOFOL 20 ML ONE (07:21)
[2023-03-03] MEDS ORDERED: Lidocaine 1% PF 5 ML VIAL ONE (07:21)
== END 2023-03-03 09:04 | disposition home or self-care (01) ==
LOC: SDC 05:48
PROVIDERS: ATTEND Internal Medicine Cardiovascular Disease
PROC: 5A2204Z Restoration of Cardiac Rhythm, Single (ICD-10-PCS; principal; 2023-03-03)
DX: I48.0 Paroxysmal atrial fibrillation (principal); E03.9 Hypothyroidism, unspecified; C50.919 Malignant neoplasm of unspecified site of unspecified female breast; I87.2 Venous insufficiency (chronic) (peripheral); Z86.16 Personal history of COVID-19; Z79.01 Long term (current) use of anticoagulants; Z79.890 Hormone replacement therapy; Z79.899 Other long term (current) drug therapy; Z88.2 Allergy status to sulfonamides; Z98.84 Bariatric surgery status
CPT/HCPCS: 92960; 93005; 93010; J2704

== ENCOUNTER 2023-09-14 10:40 | Outpatient (CLI) | payer BC | END 2023-09-14 10:41 | disposition home or self-care (01) | LOC: BICMAMMO 10:40 | PROVIDERS: ATTEND Physician Assistant | DX: Z12.31 Encounter for screening mammogram for malignant neoplasm of breast (principal); Z85.3 Personal history of malignant neoplasm of breast; Z98.890 Other specified postprocedural states; Z91.89 Other specified personal risk factors, not elsewhere classified | CPT/HCPCS: 77063; 77067 ==

== ENCOUNTER 2024-09-15 14:19 | Outpatient (CLI) | payer OTHER | END 2024-09-15 14:20 | disposition home or self-care (01) | LOC: BICMAMMO 14:19 | PROVIDERS: ATTEND Internal Medicine Hematology & Oncology | DX: Z12.31 Encounter for screening mammogram for malignant neoplasm of breast (principal); Z85.3 Personal history of malignant neoplasm of breast; Z91.89 Other specified personal risk factors, not elsewhere classified; Z98.890 Other specified postprocedural states | CPT/HCPCS: 77063; 77067 ==